=== PATIENT | female | born 2000 | race Two or more races ===

== ENCOUNTER 2020-02-25 04:55 | Inpatient (IN) | payer OTHER ==
--- NOTE | 2020-02-25 06:30 | HP ---
Past Medical History - Primary Care Physician PCP:: MNR - Admission Chief Complaint: contractions and leakage at 430 am History Source: Patient - Past Medical History ...: 2 ...Para: 1 ... Weeks Gestation by Dates: 40 - Past Surgical History Past Surgical History: Yes: None Hx Myomectomy: No Hx Transabdominal Cerclage: No - Smoking History Have you smoked in the past 12 months: No - Alcohol/Substance Use Hx Alcohol Use: No - Social History Usual Living Arrangement: Yes: With Spouse Home Medications - Allergies Allergies/Adverse Reactions: Allergies Allergy/AdvReac Type Severity Reaction Status Date / Time No Known Allergies Allergy Verified 02/24/20 14:05 - Home Medications Home Medications: Ambulatory Orders Pnv No.95/Ferrous Fum/Folic AC [ Formula] 1 each PO DAILY 02/24/20 Review of Systems - Review of Systems Constitutional: reports: No Symptoms Neck: reports: No Symptoms Cardiovascular: reports: No Symptoms Respiratory: reports: No Symptoms Gastrointestinal: reports: No Symptoms Genitourinary: reports: No Symptoms Breasts: reports: No Symptoms Reported Musculoskeletal: reports: No Symptoms Integumentary: reports: No Symptoms Neurological: reports: No Symptoms Physical Exam - Maternity - Abdominal Exam/OB Number of Fetuses: Single Presentation: Vertex Contractions: Yes Regularity: Regular Intensity: Mild/Mod Monitor Mode: External Heart Rate (range): 140 Accelerations: Uniform Decelerations: None - Vaginal Exam/OB Vaginal Bleeding: No Dilatation (cm): 2 Effacement (%): 80 Amniotic Membrane Status: Ruptured Presentation: Vertex/Position Station: -2 - Physical Exam Musculoskeletal: Yes: WNL Hemorrhage Risk Assessment - Risk Factors Medium Risk Factors: Yes: EFW greater than 4000g High Risk Factors: Yes: None Risk Score: 1 Risk Level: Medium Risk Assessment/Plan 19 yo P1 at 40 wks in labor with SROM 430 am Small stature EFW 4400 gm (9-11) on U/S 02/18 at [facility] Previous 8-11 Admit for MARLENE Consented for possible
[2020-02-25] MEDS ORDERED: ELECTROLYTE-148 SOLN 1,000 ML IV SCH (06:45)
[2020-02-25 07:29] VITALS: BMI 36.1
[2020-02-25 07:59] LABS: INR 0.91 (0.83-1.09); PROTHROMBIN TIME (PATIENT) 10.7 SEC (9.7-13.0)
[2020-02-25 08:02] LABS: ACTIVATED PTT 26.9 SECONDS (25.2-36.5)
[2020-02-25 08:14] LABS: BASO % 0.2 % (0-2.0); HEMATOCRIT 33.8 % (32.4-45.2); HEMOGLOBIN 10.9 GM/dL (10.7-15.3); LYMPH % 10.2 % (8-40); MCH 25.1 pg (25.7-33.7); MCHC 32.2 g/dl (32.0-36.0); MEAN CELL VOLUME 77.9 fl (80-96); MEAN PLT VOLUME 8.5 fl (7.5-11.1); MONO % 3.8 % (3.8-10.2); NEUT % 85.8 % (42.8-82.8); PLATELET COUNT 214 K/MM3 (134-434); RBC 4.34 M/mm3 (3.60-5.2); RDW 18.3 % (11.6-15.6); WHITE BLOOD COUNT 11.7 K/mm3 (4.0-10.0)
[2020-02-25 08:20] LABS: CREATININE 0.5 mg/dL (0.55-1.3); POTASSIUM 3.8 mmol/L (3.5-5.1)
--- NOTE | 2020-02-25 08:23 | PN ---
Progress Note (short form) - Note Progress Note: cervix 5 cm 90% VTX -2 AROM clear tracing reactive with good variability accelerations had asingkle deceleration at which tme IFM was placed plan epidural anesthesia and observation.
[2020-02-25] MEDS ORDERED: PCA PUMP NR ONE (08:37)
[2020-02-25] MEDS ORDERED: FENTANYL/BUPIVACAINE/NS/PF - PCEA - 50 ML DISP.SYRIN EP ONE (08:38)
[2020-02-25] MEDS ORDERED: OXYTOCIN 20 UNITS in 0.9% NS 20 UNIT/1,000 ML INFUS.BAG IV ONE (09:44)
[2020-02-25] MEDS ORDERED: ACETAMINOPHEN 325 MG TABLET (FP) PO PRN (10:04)
[2020-02-25] MEDS ORDERED: BISACODYL 10 MG SUPP.RECT RC PRN (10:04)
[2020-02-25] MEDS ORDERED: IBUPROFEN 600 MG TABLET (FP) PO PRN (10:04)
--- NOTE | 2020-02-25 10:04 | PN ---
Delivery - Delivery Vaginal Delivery: No Problems Type of Anesthesia: Epidural Episiotomy/Laceration: None Delivery, Single - Feeding Plan Initial Plan: Elected not to breastfeed exclusively throughout hospitalization
[2020-02-25] MEDS ORDERED: NALOXONE HCL 0.4 MG/ML VIAL IVPUSH PRN (10:12)
[2020-02-25] MEDS ORDERED: FENTANYL/BUPIVACAINE/NS/PF - PCEA - 50 ML DISP.SYRIN EP SCH ×2 (10:15→12:36)
[2020-02-25] MEDS ORDERED: OXYTOCIN 20 UNITS in 0.9% NS 20 UNIT/1,000 ML INFUS.BAG IV SCH ×2 (10:15→12:15)
[2020-02-25] MEDS ORDERED: CARBOPROST TROMETHAMINE 250 MCG/ML AMPUL IM ONE (12:05)
--- NOTE | 2020-02-25 12:09 | PN ---
Progress Note (short form) - Note Progress Note: pt having some bleeding post pelvic exam performed about 200 cc of clots removed hemabate and methergine given plan observation
[2020-02-25] MEDS ORDERED: METHYLERGONOVINE MALEATE 0.2 MG/1 ML AMP IM ONE (12:11)
[2020-02-26 09:50] VITALS: BP 99/49; PULSE 77; TEMP 97.5
[2020-02-26 10:00] LABS: BASO % 0.5 % (0-2.0); EOS % 0.2 % (0-4.5); HEMATOCRIT 28.1 % (32.4-45.2); LYMPH % 20.7 % (8-40); MCH 25.5 pg (25.7-33.7); MCHC 32.1 g/dl (32.0-36.0); MEAN CELL VOLUME 79.2 fl (80-96); MONO % 6.1 % (3.8-10.2); NEUT % 72.5 % (42.8-82.8); PLATELET COUNT 171 K/MM3 (134-434); RBC 3.55 M/mm3 (3.60-5.2); RDW 18.6 % (11.6-15.6); WHITE BLOOD COUNT 11.3 K/mm3 (4.0-10.0)
--- NOTE | 2020-02-26 10:40 | PN ---
Post Progress Note Post Day: 2 Type of Delivery: Spon Vaginal Breech Vital Signs: Vital Signs Temperature 97.5 F L 02/26/20 09:49 Pulse Rate 77 02/26/20 09:49 Respiratory Rate 18 02/26/20 09:49 Blood Pressure 99/49 L 02/26/20 09:49 O2 Sat by Pulse Oximetry (%) 96 02/25/20 12:45 Breast Exam: Yes: Soft Uterus: Yes: Fundus Firm, Fundus below umbilicus, Non-tender Abdomen/GI: Yes: Abdomen soft, Tolerating PO Lochia: Yes: Rubra Lochia, amount: Small Extremities: Yes: Calves non-tender Activity: Ambulating - Labs Labs: CBC WBC 11.3 K/mm3 (4.0-10.0) H 02/26/20 09:40 RBC 3.55 M/mm3 (3.60-5.2) L 02/26/20 09:40 Hgb 9.0 GM/dL (10.7-15.3) L 02/26/20 09:40 Hct 28.1 % (32.4-45.2) L D 02/26/20 09:40 MCV 79.2 fl (80-96) L 02/26/20 09:40 MCH 25.5 pg (25.7-33.7) L 02/26/20 09:40 MCHC 32.1 g/dl (32.0-36.0) 02/26/20 09:40 RDW 18.6 % (11.6-15.6) H 02/26/20 09:40 Plt Count 171 K/MM3 (134-434) D 02/26/20 09:40 MPV 8.0 fl (7.5-11.1) 02/26/20 09:40 Absolute Neuts (auto) 8.2 K/mm3 (1.5-8.0) H 02/26/20 09:40 Neutrophils % 72.5 % (42.8-82.8) 02/26/20 09:40 Lymphocytes % 20.7 % (8-40) D 02/26/20 09:40 Monocytes % 6.1 % (3.8-10.2) 02/26/20 09:40 Eosinophils % 0.2 % (0-4.5) D 02/26/20 09:40 Basophils % 0.5 % (0-2.0) 02/26/20 09:40 Nucleated RBC % 0 % (0-0) 02/26/20 09:40 Assessment/Plan S/P , ppd # 1. stable Dischargwe home today.
--- NOTE | 2020-02-26 10:51 | DS ---
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: Vital Signs Temperature 97.5 F L 02/26/20 09:49 Pulse Rate 77 02/26/20 09:49 Respiratory Rate 18 02/26/20 09:49 Blood Pressure 99/49 L 02/26/20 09:49 O2 Sat by Pulse Oximetry (%) 96 02/25/20 12:45 Constitutional: Yes: Well Nourished Eyes: Yes: WNL HENT: Yes: WNL Neck: Yes: WNL Cardiovascular: Yes: WNL Respiratory: Yes: WNL Gastrointestinal: Yes: WNL Renal/: Yes: WNL Pelvis: Yes: WNL External Genitalia: Yes: Normal Vaginal Exam: Yes: Normal Cervix: Yes: Normal Uterus: Yes: Normal Adnexa: Normal: Bilateral ....Post : Yes: Uterus firm Breast(s): Yes: WNL Musculoskeletal: Yes: WNL Extremities: Yes: WNL Edema: No Integumentary: Yes: WNL Neurological: Yes: WNL ...Motor Strength: WNL Psychiatric: Yes: WNL Labs: CBC, BMP 02/26/20 09:40 02/25/20 07:30 Delivery - Delivery Vaginal Delivery: No Problems, Spontaneous Type of Anesthesia: Epidural Episiotomy/Laceration: None EBL (cc): 200 Delivery, Single - Stages of Labor Date 1st Stage Initiatied: 02/25/20 Time 1st Stage Initiated: 04:00 Date 2nd Stage Initiated: 02/25/20 Time 2nd Stage Initiated: 09:48 Date of Delivery: 02/25/20 Time of Delivery: 09:52 Time Placenta Delivered: 09:55 - 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
[2020-02-26] MEDS ORDERED: SENNOSIDES/DOCUSATE COMBO (SENNA PLUS) TABLET (UD) PO PRN (22:00)
== END 2020-02-26 13:40 | disposition home or self-care (01) | DRG 560 ==
LOC: JDEL 04:55 → JLDR 06:00 → J3N 14:00
PROVIDERS: ADMIT Specialist; ATTEND Specialist
PROC: 10907ZC Drainage of Amniotic Fluid, Therapeutic from Products of Conception, Via Natural or Artificial Opening (ICD-10-PCS; principal; 2020-02-25)
PROC: 10E0XZZ Delivery of Products of Conception, External Approach (ICD-10-PCS; 2020-02-25)
DX: O48.0 Post-term pregnancy (principal); O72.1 Other immediate postpartum hemorrhage; Z3A.40 40 weeks gestation of pregnancy; Z37.0 Single live birth
CPT/HCPCS: 36415; 59409; 80048; 85025; 85610; 85730; 86780; 86850; 86900; 86901; U0003